=== PATIENT | female | born 1950 | race African-American/Black ===

== ENCOUNTER 2021-09-01 18:10 | Emergency (ER) | payer OTHER ==
[~2021-09-01] VITALS: Ht 165.1 cm; Wt 99.3 kg
[2021-09-01] MEDS ORDERED: NORVASC 2.5 MG2.5 M1 PO (18:41)
[2021-09-01] MEDS ORDERED: HYDROCHLOROTHIA50 MG PO (18:42)
[2021-09-01] MEDS ORDERED: COZAAR 25 MG TA25 M1 PO (18:42)
[2021-09-01] MEDS ORDERED: ELIQUIS5 MG PO (20:29)
[2021-09-01 20:51] VITALS: BP 187/82
[2021-09-02] MEDS ORDERED: XARELTO15 MG PO (13:37)
== END 2021-09-01 20:59 | disposition home or self-care (01) ==
LOC: ER 18:10
DX: I82.411 Acute embolism and thrombosis of right femoral vein (principal); I10 Essential (primary) hypertension; N19 Unspecified kidney failure; M19.90 Unspecified osteoarthritis, unspecified site; Z79.899 Other long term (current) drug therapy; Z79.891 Long term (current) use of opiate analgesic; Z88.1 Allergy status to other antibiotic agents